=== PATIENT | male | born 1995 | race Hispanic/Latino ===

== ENCOUNTER 2019-08-14 12:29 | Day surgery (SDC) | payer OTHER ==
[~2019-08-14] VITALS: Ht 177.8 cm; Wt 84.8 kg
[~2019-08-14 12:29] MED LIST: LR 1,000 ML IV ONE; ceFAZolin SOD 2 GM in IV 1 EA IV ONE
[2019-08-14] MEDS ORDERED: ONDANSETRON 4MG/2ML VIAL (J2405) As Ordered ONE ×2 (15:23→20:09)
[2019-08-14] MEDS ORDERED: ROCURONIUM BROMIDE 50 MG/5 ML VIAL As Ordered ONE ×2 (15:23→18:21)
[2019-08-14] MEDS ORDERED: PROPOFOL 200 MG/20 ML VIAL As Ordered ONE (15:23)
[2019-08-14] MEDS ORDERED: dexameTHASONE 4 MG/ML 1ML VIAL (J1100) As Ordered ONE (15:23)
[2019-08-14] MEDS ORDERED: KETOROLAC 60 MG/2 ML VIAL (J1885) As Ordered ONE (15:23)
[2019-08-14] MEDS ORDERED: GLYCOPYRROLATE INJ 0.2 MG/ML 2 ML VIAL As Ordered ONE (15:23)
[2019-08-14] MEDS ORDERED: LIDOCAINE 2% INJ 100 MG/5 ML SDV (FOR ANES.) As Ordered ONE (15:23)
[2019-08-14] MEDS ORDERED: fentaNYL 250 MCG/5 ML INJECTION (J3010) As Ordered ONE (17:31)
[2019-08-14] MEDS ORDERED: MIDAZOLAM INJ 2 MG/2 ML VIAL (J2250) As Ordered ONE (17:31)
[2019-08-14] MEDS ORDERED: BUPIVACAINE HCL 0.25% 30 ML VIAL As Ordered ONE (17:38)
[2019-08-14] MEDS ORDERED: LIDOCAINE 1% SDV INJ 30 ML VIAL As Ordered ONE (17:38)
[2019-08-14] MEDS ORDERED: BUPIVACAINE LIPOSOME/PF 1.3% 20ML VIAL (13.3MG/ML)(EXPAREL)(C9290 PER1MG) As Ordered ONE (17:39)
[2019-08-14] MEDS ORDERED: BUPIVACAINE HCL 0.25% 10 ML VIAL As Ordered ONE (17:39)
[2019-08-14] MEDS ORDERED: ACETAMINOPHEN 1000MG 100ML IV BTL (OFIRMEV) (J0131 PER 10MG) As Ordered ONE (18:13)
[2019-08-14] MEDS ORDERED: SUGAMMADEX SODIUM 500 MG/5 ML VIAL (BRIDION) As Ordered ONE (18:25)
[2019-08-14] MEDS ORDERED: fentaNYL 100 MCG/2 ML INJECTION (J3010) As Ordered ONE (20:05)
[2019-08-14] MEDS ORDERED: oxyCODONE 5MG TAB As Ordered ONE (20:05)
[2019-08-14] MEDS: fentaNYL 100 MCG/2 ML INJECTION (J3010) IV PRN ×4 (20:08→20:30)
[2019-08-14] MEDS ORDERED: KETOROLAC 30 MG/ML VIAL (J1885) IV PRN (20:15)
[2019-08-14] MEDS ORDERED: LR 1,000 ML IV SCH (20:15)
[2019-08-14] MEDS ORDERED: ONDANSETRON 4MG/2ML VIAL (J2405) IV PRN ×2 (20:15→21:00)
[2019-08-14] MEDS: oxyCODONE 5MG TAB PO PRN ×2 (20:17→20:49)
[2019-08-14] MEDS ORDERED: NORCO, ANEXSIA 5/325MG TABLET (HYDROcodone/ACETAMINOPHEN) PO PRN (21:00)
[2019-08-14 22:15] VITALS: BP 140/75
[2019-08-15] MEDS ORDERED: KETOROLAC 30 MG/ML VIAL (J1885) IV PRN (01:00)
--- NOTE | 2019-08-27 15:25 | ROOPDOC ---
[facility] Report Of Operation Report of Operation DATE OF PROCEDURE: 08/14/19 PREPROCEDURE DIAGNOSES: Left inguinal hernia. POSTPROCEDURE DIAGNOSES: Left inguinal hernia containing cord lipoma. PROCEDURE: Robotic-assisted laparoscopic left inguinal hernia repair (rTAPP). SURGEON: Danilo Ramirez MD ROLL UP OPERATOR: ANESTHESIA: Gen. anesthesia. ESTIMATED BLOOD LOSS: Approximately 10 mL. COMPLICATIONS: None. PROCEDURE NOTE: I did not see any peritoneal defects leading into the inguinal canal nor any evidence of direct inguinal hernia. He does have a bulky cord lipoma within the canal that was totally reduced and removed. A 10 x 15 cm Progrip mesh was placed to cover the myopectineal orifice.. DESCRIPTION OF PROCEDURE: Patient received 2 g of Ancef IV preoperatively for wound prophylaxis. Patient was brought to the operating room, placed supine on the operating table. Compression boots placed in both lower extremities for DVT prophylaxis. After adequate general anesthesia started, he was placed on a lithotomy position. A laurent catheter placed without difficulty. His abdomen and groin/pelvic area then prepped and draped in the usual sterile fashion. After a surgical timeout we began our surgery. Entry to the abdomen done through a small incision above the umbilical skin cleft. A Veress needle is inserted on a controlled fashion. CO2 insufflation started to pressure 15 mmHg. Using the same incision a 5 mm Visiport was then placed under direct vision of laparoscope. The insertion site was inspected for injury and none was found. Patient was then positioned on a slight Trendelenburg position with the symptomatic (left) side tilted upwards for adequate view of the hernia defect. 2 working ports placed to the right and left of the midline port along the same line. The da Sudheer robot tower was then positioned coming from the patients left side. The trochars were docked to the robot and the instruments placed. I then unscrubbed and took control of the camera and the laparoscopic instruments at the surgeon's console. I used a forced bipolarwith bipolar cautery on arm 2 and A pina-cut laparoscopic scissor w ith unipolar cautery in arm 1 was used. Operative Findings: No peritoneal defect was found on the right side. On the left side, no true peritoenal defect (just a slight dimpling) is noted. The peritoneum was opened up about 5 cm above the superior edge of the inguinal ring starting at the medial umbilical ligament going in an arc-like fashion laterally towards the level of the anterior superior iliac spine. This was then dissected mostly bluntly away from the abdominal wall all sweeping the adipose tissue off the peritoneum and staying within the preperitoneal plane. As I commonly medially becoming more retrorectus and positioning . On approaching the internal ring the peritoneum was pulled back into the preperitoneal space and carefully dissected off the testicular vessels and vas deferens. The vas deferens and testicular cord structures were identified. The inguinal canal was explored in a bulky cord lipoma was found. There is a good amount of adiposity surrounding the testicular vessels which was confluent with the cord lipoma. I dissected the cord lipoma and The adipose tissue around the testicular vessels. The parietal covering of the vas deferens was kept in place as well as the testicular vessels. Space of Retzius was opened up down beyond the pubic tubercle and be on the symphysis pubis. The femoral space was inspected for hernia and none was found. The bridging tissues in between the lateral gross in the medial space of Retzius was divided to allow for proper mesh placement. Proceeded opening up the space Bogros to create enough space for placement of mesh. I chose a 15x10 cm Parietex Pro It Technician self fixating mesh. This was folded with the center of the mesh marked for positioning. This was then delivered intra- abdominally through one of the trochars. This was positioned into the preperitoneal space with the medial side towards the symphisis pubis and the previously marked center of the mesh abutting the inferior epigastric vessels. The mesh was then carefully unfolded and positioned in place with adequate overlap around the internal ring to cover the hernia defect. The mesh has adequate coverage for the direct hernia spaces as well. This was carefully pressed onto the abdominal wall and made sure that it was flattened up. After careful placement of the mesh, the peritoneal opening was then closed with a running suture of 2-0V LOC suture. As the hernia sac was long and redundant I incorporated the hernia sac into the closure of the peritoneum. I then surveyed the abdomen and pelvis for any signs of injury. Once satisfied I scrubbed back in. The instruments were removed. The abdomen was deflated. All ports were removed. The skin incisions were closed with 4-0 Monocryl in subcuticular fashion. The incisions were covered with Dermabond. The port sites were again infiltrated with local anesthesia. An ilioinguinal nerve block was also performed. Patient was promptly awakened, extubated and brought to the recovery room stable Count of sponges and instruments were verified correct. DANILO RAMIREZ MD Aug 27, 2019 15:25
== END 2019-08-14 22:20 | disposition home or self-care (01) ==
LOC: M SDC 12:29
PROVIDERS: ATTEND Surgery
DX: K40.90 Unilateral inguinal hernia, without obstruction or gangrene, not specified as recurrent (principal); D17.6 Benign lipomatous neoplasm of spermatic cord; I86.1 Scrotal varices
CPT/HCPCS: 49650; C1781; C9290; J0131; J0690; J1100; J1885; J2250; J2405; J3010